=== PATIENT | male | born 1950 ===

== ENCOUNTER 2016-11-16 10:20 | Emergency (ER) | payer MEDICARE, OTHER ==
[2016-11-16 10:20] VITALS: BMI 28.5
[2016-11-16 10:33] VITALS: BP 128/74; PULSE 98; RESP 16; TEMP 98.3; O2SAT 94
--- NOTE | 2016-11-16 13:05 | ED PDOC ---
Arrival/HPI - General Chief Complaint: High Blood Pressure Time Seen by Provider: 11/16/16 10:35 Historian: Patient - History of Present Illness Narrative History of Present Illness (Text): 11/16/16 10:35 A 66 year old male, whose past medical history includes diabetes and hypertension reports to emergency department complaining of a high blood sugar level. Patient was at the nursing station at his residents and was found to have a blood glucose level of 300, so he came to the emergency room for further evaluation. Patient states that he is complying with his medications, but not with his diet. Patient denies any fever or other complaints at this time. PMD: Dr. Rojas Time/Duration: Prior to Arrival Symptom Onset: Sudden Symptom Course: Unchanged Quality: Other Activities at Onset: Rest Modifying Factors (Text): patient is noncompliant with diet Context: Home (correction) Associated Symptoms (Text): None Past Medical History - Provider Review Nursing Documentation Reviewed: Yes - Infectious Disease Hx of Infectious Diseases: None - Tetanus Immunization Tetanus Immunization: Unknown - Cardiac Hx Hypertension: Yes - Pulmonary Hx Respiratory Disorders: Yes Hx Asthma: Yes Hx Sleep Apnea: Yes - Neurological Hx Neurological Disorder: Yes Other/Comment: NEUROPATHY - HEENT Hx HEENT Disorder: Yes Hx Cataracts: Yes - Renal Hx Renal Disorder: No - Endocrine/Metabolic Hx Endocrine Disorders: Yes Hx Diabetes Mellitus Type 2: Yes - Hematological/Oncological Hx Blood Disorders: No - Integumentary Hx Dermatological Disorder: No - Musculoskeletal/Rheumatological Hx Falls: Yes - Gastrointestinal Hx Gastrointestinal Disorders: Yes Hx Gall Bladder Disease: Yes Hx Gastroesophageal Reflux: Yes Hx Hemorrhoids: Yes Other/Comment: hemorrhoids - Genitourinary/Gynecological Hx Genitourinary Disorders: Yes Hx Prostate Problems: Yes (BPH) - Psychiatric Hx Psychophysiologic Disorder: No Hx Anxiety: Yes Hx Depression: Yes Hx Emotional Abuse: No Hx Physical Abuse: No Hx Substance Use: No - Surgical History Hx Cholecystectomy: Yes Hx Orthopedic Surgery: Yes (LEFT FOOT) - Anesthesia Hx Anesthesia: Yes Hx Anesthesia Reactions: No Hx Malignant Hyperthermia: No - Suicidal Assessment Feels Threatened In Home Enviroment: No Family/Social History - Physician Review Nursing Documentation Reviewed: Yes Family/Social History: Unknown Family HX Smoking Status: Former Smoker Hx Alcohol Use: No Hx Substance Use: No Hx Substance Use Treatment: No Allergies/Home Meds Allergies/Adverse Reactions: Allergies ibuprofen [From Motrin] Allergy (Intermediate, Verified 11/16/16 10:24) ITCHING Home Medications: Home Meds Medication Instructions Recorded Confirmed Insulin Human NPH/Reg [HumuLIN 15 unit SC TID 04/04/13 11/16/16 70/30 (NPH/Reg)] Mometasone/Formoterol [Dulera 200 2 puff IH BID 04/08/14 11/16/16 Mcg/5 Mcg Inhaler] PARoxetine [Paxil CR] 20 mg PO HS 04/08/14 11/16/16 Ezetimibe/Simvastatin [Vytorin 1 tab PO HS 07/21/14 11/16/16 10-20 mg Tablet] Albuterol HFA [Ventolin HFA 90 2 puff IH [id number] PRN 10/05/15 11/16/16 mcg/actuation (8 g)] Benazepril HCl 40 mg PO DAILY 10/05/15 11/16/16 Insulin Glargine, Recombina 45 unit SQ HS 10/05/15 11/16/16 [Lantus] amLODIPine [Norvasc] 2.5 mg PO DAILY 10/05/15 11/16/16 metFORMIN [glucOPHAGE] 750 mg PO TID 11/16/16 11/16/16 Review of Systems - Physician Review All systems were reviewed & negative as marked: Yes - Review of Systems Constitutional: absent: Fevers Respiratory: absent: SOB Cardiovascular: absent: Chest Pain Endocrine: Other (high blood sugar) Physical Exam Vital Signs Reviewed: Yes Vital Signs Temp Pulse Pulse Resp BP Pulse Ox 11/16/16 10:43 98.3 F 98 H 16 128/74 94 L 11/16/16 10:34 98 H 11/16/16 10:27 98.3 F 98 H 16 128/74 94 L Temperature: Afebrile Blood Pressure: Normal Pulse: Regular Respiratory Rate: Normal Appearance: Positive for: Well-Appearing, Non-Toxic, Comfortable Pain Distress: None Mental Status: Positive for: Alert and Oriented X 3 Finger Stick Blood Glucose: 278 - Systems Exam Head: Present: Atraumatic, Normocephalic Pupils: Present: PERRL Extroacular Muscles: Present: EOMI Conjunctiva: Present: Normal Mouth: Present: Moist Mucous Membranes Neck: Present: Normal Range of Motion Respiratory/Chest: Present: Clear to Auscultation, Good Air Exchange. No: Respiratory Distress, Accessory Muscle Use Cardiovascular: Present: Regular Rate and Rhythm, Normal S1, S2. No: Murmurs Abdomen: Present: Normal Bowel Sounds. No: Tenderness, Distention, Peritoneal Signs Back: Present: Normal Inspection Upper Extremity: Present: Normal Inspection. No: Cyanosis, Edema Lower Extremity: Present: Normal Inspection. No: Edema Neurological: Present: GCS=15, CN II-XII Intact, Speech Normal Skin: Present: Warm, Dry, Normal Color. No: Rashes Psychiatric: Present: Alert, Oriented x 3, Normal Insight, Normal Concentration Medical Decision Making ED Course and Treatment: 11/16/16 10:35 Impression: A 66 year old male with high blood sugar. Patient blood sugar checked upon arrival and was found to be 276. Differential Diagnosis included but are not limited to: hyperglycemia Plan: -- EKG -- Reassess and disposition Prior Visits: Notes and results from previous visits were reviewed. The patient last seen in the emergency department on 08/07/15 for evaluation of left-sided facial droop. Progress Notes: EKG: Ordered, reviewed, and independently interpreted the EKG. Rate : 91 BPM Rhythm : NSR Interpretation : No ST-segment elevations or depressions, no T-wave inversions, normal intervals. 11/16/16 11:30 On reevaluation the patient is in no acute distress. I have discussed the results and plan with the patient, who expresses understanding. Patient given the opportunity to ask question, all questions were answered and there is agreement with the plan to discharge the patient home. Patient is stable for discharge. Patient was instructed to follow up with physician/clinic in 1-2 days or return if symptoms persist/worsen or new concerning symptoms arise. - Lab Interpretations Lab Results: Lab Results 11/16/16 10:41: POC Glucose (mg/dL) 278 H - Scribe Statement The provider has reviewed the documentation as recorded by the Scribe Chela Alexandra training with Shine Maddox. Provider Scribe Attestation: All medical record entries made by the Scribe were at my direction and personally dictated by me. I have reviewed the chart and agree that the record accurately reflects my personal performance of the history, physical exam, medical decision making, and the department course for this patient. I have also personally directed, reviewed, and agree with the discharge instructions and disposition. Disposition/Present on Arrival - Present on Arrival Any Indicators Present on Arrival: No History of DVT/PE: No History of Uncontrolled Diabetes: Yes Urinary Catheter: No History of Decub. Ulcer: No History Surgical Site Infection Following: None - Disposition Have Diagnosis and Disposition been Completed?: Yes Diagnosis: Diabetes mellitus Disposition: HOME/ ROUTINE Disposition Time: 11:10 Condition: GOOD Discharge Instructions (ExitCare): Diabetes Mellitus Type 2 in Adults (ED) Additional Instructions: Thank you for letting us take care of you today. Your provider was Dr. Logan. You were treated for hyperglycemia. The emergency medical care you received today was directed at your acute symptoms. If you were prescribed any medication, please fill it and take as directed. It may take several days for your symptoms to resolve. Return to the Emergency Department if your symptoms worsen, do not improve, or if you have any other problems. Please contact your doctor or call one of the physicians/clinics you have been referred to that are listed on the Patient Visit Information form that is included in your discharge packet. Bring any paperwork you were given at discharge with you along with any medications you are taking to your follow up visit. Our treatment cannot replace ongoing medical care by a primary care provider (PCP) outside of the emergency department. Thank you for allowing the [facility] team to be part of your care today. Follow up with your doctor in 3-4 days for re-evaluation. Referrals: Chrissy Rojas MD [Primary Care Provider] - Follow up with primary
--- NOTE | 2016-11-16 18:34 | CARD ---
APPROVED REPORT EKG Measurement Heart [id number] <Conclusion> Normal sinus rhythm Normal ECG
== END 2016-11-16 11:30 | disposition home or self-care (01) ==
LOC: ED 10:20
DX: E11.9 Type 2 diabetes mellitus without complications (principal); I10 Essential (primary) hypertension; Z87.891 Personal history of nicotine dependence

== ENCOUNTER 2016-12-17 07:02 | Emergency (ER) | payer MEDICARE, OTHER ==
[2016-12-17 07:38] VITALS: TEMP 98.9; BMI 28.8
[2016-12-17 10:02] LABS: PH,URINE 5.5 (4.7-8.0); URINE BILIRUBIN NEGATIVE (NEGATIVE); URINE BLOOD NEGATIVE (NEGATIVE); URINE GLUCOSE (UA) >=1000 mg/dL (NEGATIVE); URINE KETONE TRACE mg/dL (NEGATIVE); URINE LEUKOCYTE ESTERASE NEGATIVE Leu/uL (NEGATIVE); URINE PROTEIN NEGATIVE mg/dL (<30 mg/dL); URINE UROBILINOGEN 0.2 E.U./dL (<1 E.U./dL)
--- NOTE | 2016-12-17 10:06 | ED PDOC ---
Arrival/HPI - General Chief Complaint: Back Pain Time Seen by Provider: 12/17/16 08:29 Historian: Patient - History of Present Illness Narrative History of Present Illness (Text): 12/17/16 12:17 66-year-old male with chronic back pain controlled with Percocet presents emergency Department with urine discoloration. Patient states that his urine is more yellow than usual. Time/Duration: 1-3 hours Symptom Course: Unchanged Activities at Onset: Rest Context: Home Past Medical History - Provider Review Nursing Documentation Reviewed: Yes - Infectious Disease Hx of Infectious Diseases: None - Tetanus Immunization Tetanus Immunization: Unknown - Cardiac Hx Hypertension: Yes - Pulmonary Hx Respiratory Disorders: Yes Hx Asthma: Yes Hx Sleep Apnea: Yes - Neurological Hx Neurological Disorder: Yes Other/Comment: NEUROPATHY - HEENT Hx HEENT Disorder: Yes Hx Cataracts: Yes - Renal Hx Renal Disorder: No - Endocrine/Metabolic Hx Endocrine Disorders: Yes Hx Diabetes Mellitus Type 2: Yes - Hematological/Oncological Hx Blood Disorders: No - Integumentary Hx Dermatological Disorder: No - Musculoskeletal/Rheumatological Hx Falls: Yes - Gastrointestinal Hx Gastrointestinal Disorders: Yes Hx Gall Bladder Disease: Yes Hx Gastroesophageal Reflux: Yes Hx Hemorrhoids: Yes Other/Comment: hemorrhoids - Genitourinary/Gynecological Hx Genitourinary Disorders: Yes Hx Prostate Problems: Yes (BPH) - Psychiatric Hx Psychophysiologic Disorder: No Hx Anxiety: Yes Hx Depression: Yes Hx Emotional Abuse: No Hx Physical Abuse: No Hx Substance Use: No - Surgical History Hx Cholecystectomy: Yes Hx Orthopedic Surgery: Yes (LEFT FOOT) - Anesthesia Hx Anesthesia: Yes Hx Anesthesia Reactions: No Hx Malignant Hyperthermia: No - Suicidal Assessment Feels Threatened In Home Enviroment: No Family/Social History - Physician Review Nursing Documentation Reviewed: Yes Family/Social History: No Known Family HX Smoking Status: Former Smoker Hx Alcohol Use: No Hx Substance Use: No Hx Substance Use Treatment: No Allergies/Home Meds Allergies/Adverse Reactions: Allergies ibuprofen [From Motrin] Allergy (Intermediate, Verified 12/17/16 07:38) ITCHING Home Medications: Home Meds Medication Instructions Recorded Confirmed Insulin Human NPH/Reg [HumuLIN 15 unit SC TID 04/04/13 11/16/16 70/30 (NPH/Reg)] Mometasone/Formoterol [Dulera 200 2 puff IH BID 04/08/14 11/16/16 Mcg/5 Mcg Inhaler] PARoxetine [Paxil CR] 20 mg PO HS 04/08/14 11/16/16 Ezetimibe/Simvastatin [Vytorin 1 tab PO HS 07/21/14 11/16/16 10-20 mg Tablet] Albuterol HFA [Ventolin HFA 90 2 puff IH [id number] PRN 10/05/15 11/16/16 mcg/actuation (8 g)] Benazepril HCl 40 mg PO DAILY 10/05/15 11/16/16 Insulin Glargine, Recombina 45 unit SQ HS 10/05/15 11/16/16 [Lantus] amLODIPine [Norvasc] 2.5 mg PO DAILY 10/05/15 11/16/16 metFORMIN [glucOPHAGE] 750 mg PO TID 11/16/16 11/16/16 Review of Systems - Physician Review All systems were reviewed & negative as marked: Yes Physical Exam - Physical Exam Narrative Physical Exam (Text): 12/17/16 12:22 - Review of Systems Constitutional: Normal. absent: Fatigue, Weight Change, Fevers Eyes: Normal ENT: denies sore throat, denies tristhmus Respiratory: Normal. absent: SOB, Cough, Sputum Cardiovascular: absent: Chest Pain, Palpitations, Syncope Gastrointestinal: Normal. absent: Abdominal Pain, Diarrhea, Nausea, Vomiting Genitourinary: Urine discoloration absent: Dysuria, Frequency, Hematuria Musculoskeletal: Normal. absent: Arthralgias, Back Pain, Neck Pain Skin: no rashes, no erythema Neurological: absent: Focal Weakness Endocrine: Normal Hemo/Lymphatic: Normal Psychiatric: No suicidal or homicidal ideations Physical exam Patient appears age appropriate in no distress, speaking full sentences without difficulty Increased hypertonicity appreciated in the lumbar region, pain quality reproduced with palpation. No midline tenderness. FROM of pt's cervical, thoracic, lumbar, and sacral regions appreciated, active/passive without any difficulty. Lower extremities with full neurological and vascular intact. Steady gait. - Systems Exam Head: Present: Atraumatic, Normocephalic Pupils: Present: PERRL Extroacular Muscles: Present: EOMI Conjunctiva: Present: Normal Mouth: Present: Moist Mucous Membranes Neck: Present: Normal Range of Motion. No: MIDLINE TENDERNESS, Paraspinal Tenderness Respiratory/Chest: Present: Clear to Auscultation, Good Air Exchange. No: Respiratory Distress, Accessory Muscle Use, Tachypneic Cardiovascular: Present: Regular Rate and Rhythm, Normal S1, S2, Peripheal Pulses Present. No: Murmurs Abdomen: Present: Normal Bowel Sounds. No: Tenderness, Distention, Peritoneal Signs, Rebound, Guarding Back: Present: Normal Inspection. No: Midline Tenderness, Paraspinal Tenderness Upper Extremity: Present: Normal Inspection. No: Cyanosis, Edema Lower Extremity: Present: Normal Inspection. No: Edema Neurological: Present: GCS=15, Speech Normal, cranial nerves II through XII fully intact with no cerebellar abnormality, neurosensory fully intact. No focal neurological deficits. Skin: Present: Warm, Dry, Normal Color. No: Rashes Lymphatic: Present: OX3, NI, NC Psychiatric: Present: Alert, Oriented x 3, Normal Insight, Normal Concentration Vital Signs Reviewed: Yes Vital Signs Temp Pulse Resp BP Pulse Ox 12/17/16 11:43 79 18 176/85 H 100 12/17/16 09:02 88 16 191/101 H 100 12/17/16 07:37 98.9 F 91 H 16 133/83 96 Temperature: Afebrile Blood Pressure: Normal Pulse: Regular Respiratory Rate: Normal Appearance: Positive for: Well-Appearing, Non-Toxic, Comfortable Pain Distress: None Mental Status: Positive for: Alert and Oriented X 3 Medical Decision Making ED Course and Treatment: 12/17/16 10:05 Impression: 66-year-old male with chronic back pain controlled with Percocet presents emergency Department with urine discoloration. Patient states that his urine is more yellow than usual. No acute findings on physical examination. Differential Diagnosis include but are not limited to: UTI vs renal colic Plan: -- CT abd/pelvis w/o PO or IV -- Urinalysis -- Labs -- Reassess and disposition Prior Visits: Notes and results from previous visits were reviewed. Patient last seen in the Emergency department on 11/19/16 for evaluation of high blood sugar level. Patient was stable for discharge. Patient was advised to follow up with physician. Progress Notes: CT abd/pelvis: Creator : Eran Tillman MD IMPRESSION: No acute intra-abdominal findings 12/17/16 12:15 Patient in no distress, denies any pain at this time, states that he feels comfortable being discharged home with outpatient follow-up. Pt states he understands to return to the ER right away for new or worsening symptoms or for inability to f/u with PMD or specialist as instructed. Patient states that he fully agrees with and understands discharge instructions. States that he agrees with the plan and disposition. Verbalized and repeated discharge instructions and plan. I have given the patient opportunity to ask any additional questions. 12/17/16 12:23 - Lab Interpretations Lab Results: 12/17/16 10:00 12/17/16 10:00 Lab Results 12/17/16 10:00: WBC 8.6, RBC 4.65, Hgb 14.4, Hct 41.0 L, MCV 88.2, MCH 31.0, MCHC 35.1, RDW 13.1, Plt Count 229, MPV 9.3, Gran % 65.6, Lymph % (Auto) 24.4, [place] % (Auto) 8.4 H, Eos % (Auto) 1.0 L, Baso % (Auto) 0.6, Gran # 5.63, Lymph # 2.1, [place] # 0.7 H, Eos # 0.1, Baso # 0.05, PT 10.8, INR 1.00, APTT 27.1, Sodium 139, Potassium 4.5, Chloride 102, Carbon Dioxide 26, Anion Gap 16, BUN 21 , Creatinine 0.8, Est GFR ( Amer) > 60, Est GFR (Non-Af Amer) > 60, Random Glucose 234 H, Calcium 9.2, Total Bilirubin 0.5, AST 21, ALT 28, Alkaline Phosphatase 64, Total Protein 6.8, Albumin 3.9, Globulin 2.9, Albumin/ Globulin Ratio 1.4 12/17/16 09:10: Urine Color Yellow, Urine Appearance Clear, Urine pH 5.5, Ur Specific [place] >= 1.030, Urine Protein Negative, Urine Glucose (UA) >=1000, Urine Ketones Trace H, Urine Blood Negative, Urine Nitrate Negative, Urine Bilirubin Negative, Urine Urobilinogen 0.2, Ur Leukocyte Esterase Negative I have reviewed the lab results: Yes - RAD Interpretation Radiology Orders: 12/17/16 08:29 ABD & PELVIS W/O PO OR IV CONT [CT] Stat - Scribe Statement The provider has reviewed the documentation as recorded by the Gurdeepibjenelle Jose All medical record entries made by the Scribe were at my direction and personally dictated by me. I have reviewed the chart and agree that the record accurately reflects my personal performance of the history, physical exam, medical decision making, and the department course for this patient. I have also personally directed, reviewed, and agree with the discharge instructions and disposition. Disposition/Present on Arrival - Present on Arrival Any Indicators Present on Arrival: No History of DVT/PE: No History of Uncontrolled Diabetes: Yes Urinary Catheter: No History of Decub. Ulcer: No History Surgical Site Infection Following: None - Disposition Have Diagnosis and Disposition been Completed?: Yes Diagnosis: Back pain Disposition: HOME/ ROUTINE Disposition Time: 12:23 Patient Plan: Discharge Condition: GOOD Discharge Instructions (ExitCare): Back Pain (ED) Additional Instructions: PLEASE RETURN TO THE EMERGENCY DEPARTMENT FOR NEW OR WORSENING SYMPTOMS. RETURN RIGHT AWAY IF YOU CANNOT FOLLOW UP WITH YOUR PRIMARY CARE DOCTOR, CLINIC, OR SPECIALIST IN 1-2 DAYS. Referrals: Chrissy Rojas MD [Primary Care Provider] - Follow up with primary Edson Antonio MD [Staff Provider] - Follow up with primary
[2016-12-17 10:13] LABS: ADD MANUAL DIFF? NO
[2016-12-17 10:16] LABS: URINE APPEARANCE CLEAR (CLEAR); URINE COLOR YELLOW (YELLOW)
[2016-12-17 10:17] LABS: BASO # 0.05 K/mm3 (0.0-2.0); BASO % 0.6 % (0.0-3.0); EOS # 0.1 (0.0-0.7); GRAN # 5.63 (1.4-6.5); GRAN % 65.6 % (50.0-68.0); LYMPH # 2.1 (1.2-3.4); LYMPH % 24.4 % (22.0-35.0); MEAN CELL VOLUME 88.2 fL (80.0-105.0); MEAN CORPUSCULAR HGB CONC 35.1 g/dl (31.0-37.0); MEAN PLATELET VOLUME 9.3 fl (7.0-11.0); MONO # 0.7 (0.1-0.6); MONO % 8.4 % (1.0-6.0); PLATELET COUNT 229 10^3/uL (120.0-450.0); RED CELL DISTRIBUTION WIDTH 13.1 % (11.5-14.5); WHITE BLOOD COUNT 8.6 10^3/ul (4.5-11.0)
[2016-12-17 10:28] VITALS: O2SAT 100
[2016-12-17 10:28] LABS: PARTIAL THROMBOPLASTIN TIME 27.1 Seconds (23.7-30.8)
--- NOTE | 2016-12-17 10:59 | CT ---
PROCEDURE: CT Abdomen and Pelvis without intravenous contrast HISTORY: Renal colic COMPARISON: None. TECHNIQUE: Without contrast.. Contrast Dose: Radiation dose: Total exam DLP = 848 mGy-cm. This CT exam was performed using one or more of the following dose reduction techniques: Automated exposure control, adjustment of the mA and/or kV according to patient size, and/or use of iterative reconstruction technique. FINDINGS: LOWER THORAX: Unremarkable. LIVER: Unremarkable. No gross lesion or ductal dilatation. GALLBLADDER AND BILE DUCTS: Gallbladder removed PANCREAS: Unremarkable. No gross lesion or ductal dilatation. SPLEEN: Unremarkable. ADRENALS: Unremarkable. No mass. KIDNEYS AND URETERS: Unremarkable. No hydronephrosis. No solid mass. VASCULATURE: Unremarkable. No aortic aneurysm. BOWEL: Unremarkable. No obstruction. No gross mural thickening. There is mild diverticulosis of the descending and sigmoid colon without evidence of diverticulitis APPENDIX: Unremarkable. Normal appendix. PERITONEUM: Unremarkable. No free fluid. No free air. LYMPH NODES: Unremarkable. No enlarged lymph nodes. BLADDER: Unremarkable. REPRODUCTIVE: Unremarkable. BONES: No acute fracture. OTHER FINDINGS: None. IMPRESSION: No acute intra-abdominal findings
[2016-12-17 11:14] LABS: ALB/GLOB RATIO 1.4 (1.1-1.8); ALKALINE PHOSPHATASE 64 U/L (38-133); ALT/SGPT 28 U/L (7-56); AST/SGOT 21 U/L (15-59); BILIRUBIN,TOTAL 0.5 mg/dL (0.2-1.3); BLOOD UREA NITROGEN 21 mg/dL (7-21); CALCIUM 9.2 mg/dL (8.4-10.5); CARBON DIOXIDE 26 mmol/L (21-33); CHLORIDE 102 mmol/L (95-110); GFR AFRICAN-AMERICAN > 60; GLUCOSE,RANDOM 234 mg/dL (70-110); POTASSIUM 4.5 mmol/L (3.6-5.0); SODIUM 139 mmol/L (132-148); TOTAL PROTEIN 6.8 g/dL (5.8-8.3)
[2016-12-17 11:43] VITALS: BP 176/85; PULSE 79; RESP 18
== END 2016-12-17 12:30 | disposition home or self-care (01) ==
LOC: ED 07:02
DX: M54.9 Dorsalgia, unspecified (principal); I10 Essential (primary) hypertension; E11.9 Type 2 diabetes mellitus without complications; K21.9 Gastro-esophageal reflux disease without esophagitis; Z87.891 Personal history of nicotine dependence

== ENCOUNTER 2017-02-20 06:18 | Day surgery (SDC) | payer MEDICARE, OTHER ==
[2017-02-12 11:59] VITALS: BMI 29.2
[2017-02-20] MEDS ORDERED: cefTRIAXone (Rocephin) 1 gm Inj ONE (07:39)
[2017-02-20] MEDS ORDERED: Gentamicin 80 mg/2mL Inj. ONE (07:39)
[2017-02-20] MEDS ORDERED: Oxycodone/Acetaminophen 5/325 mg Tab PO PRN (08:31)
[2017-02-20] MEDS ORDERED: Propofol 10 mg/ml Inj (20 ML) ONE (08:35)
[2017-02-20] MEDS ORDERED: Midazolam 2 MG/2 ML VIAL ONE (08:35)
[2017-02-20] MEDS ORDERED: Sodium Chloride 0.9% 1,000 ML IV SCH (09:15)
[2017-02-20 09:56] VITALS: PULSE 70
[2017-02-20 10:45] VITALS: BP 133/95; RESP 20; TEMP 97.7; O2SAT 97
[2017-02-20] MEDS ORDERED: Oxycodone/Acetaminophen 5/325 mg Tab ONE (11:04)
[2017-02-20] MEDS ORDERED: Oxycodone/Acetaminophen 5/325 mg Tab PO ONE (11:06)
--- NOTE | 2017-03-22 09:55 | HP ---
DATE: 03/22/2017 UROLOGY ADMISSION HISTORY AND PHYSICAL REASON FOR ADMISSION: Workup of elevated PSA. HISTORY OF PRESENT ILLNESS: Mr. Shin is a very pleasant gentleman, who presents with an elevated PSA, voiding dysfunction, decrease nocturia, mild obstructive and irritative complaints and he is now here today for a prostate ultrasound and biopsy. PAST MEDICAL AND SURGICAL HISTORY: As listed in the chart and has a history of an NC and CVA. REVIEW OF SYSTEMS: Listed above. Noncontributory. No weight loss, chest pain, or shortness of breath, otherwise. MEDICATIONS: See chart. ALLERGIES: NONE. PHYSICAL EXAMINATION: GENERAL: Well-nourished male, in no apparent distress. VITAL SIGNS: Within normal limits as listed in the chart. LUNGS: Clear. HEART: Normal S1 and S2. ABDOMEN: Relatively soft, nontender. . No testicular masses. RECTAL: A 30 g prostate, felt to be smooth. DIAGNOSIS: Elevated PSA, voiding dysfunction, mild irritative and obstructive complaints. PLAN: At this time, also we will provide the patient with the antibiotic prophylaxis and we will plan for an ultrasound of the prostate and ultrasound-guided prostate biopsy. We discussed the patient's risks, benefits, and treatment plans. Discussed observation, discussed repeat imaging, discussed repeat blood testing. Also discussed all other options and the risks, benefits, and treatment alternatives with him. The patient is here today for an ultrasound of the prostate, ultrasound-guided prostate biopsy. Further plan will follow. Juan King MD
--- NOTE | 2017-03-22 15:36 | OP ---
PROCEDURE DATE: 02/20/2017 PREOPERATIVE DIAGNOSES: Elevated prostate-specific antigen, voiding dysfunction, decreased void stream, nocturia. POSTOPERATIVE DIAGNOSES: Elevated prostate-specific antigen, voiding dysfunction, decreased void stream, nocturia. PROCEDURE: Transrectal ultrasound and ultrasound-guided biopsy. SURGEON: Juan King MD ESTIMATED BLOOD LOSS: Less than 10 mL COMPLICATIONS: There were no complications. SPECIMEN: Prostate cords. INDICATIONS: See history and physical for further details. This is a very pleasant gentleman here for the above procedure. DESCRIPTION OF PROCEDURE: After discussing the options with the patient the risks, benefits and alternatives, the patient was brought to the OR and placed on the table. Routine monitor was placed. Time-out was called to confirm the patient's positioning. We now inserted the probe via the rectum and we took pictures. The transverse and longitudinal view of the prostate gland is measured to be about 30 cc. Now, there were no specific hypoechoic lesions. We now began our random biopsies. We did a total of 12 cords and resected in regions of left base, left mid, left apex, right base, right mid, and right apex. A total of 2 cords, lateral mid and lateral mid of each area. A total of 12 cords were sent out. Both biopsy and rectal exam was within normal limits. The patient tolerated it without any complications. Juan King MD
== END 2017-02-20 11:30 | disposition home or self-care (01) ==
LOC: SDS 06:18
PROVIDERS: ATTEND Urology
DX: N40.0 Benign prostatic hyperplasia without lower urinary tract symptoms (principal); I10 Essential (primary) hypertension; R97.20 Elevated prostate specific antigen [PSA]; I25.2 Old myocardial infarction; Z86.73 Personal history of transient ischemic attack (TIA), and cerebral infarction without residual deficits
CPT/HCPCS: 55899; 82948; 88305; J0696; J1580; J2250; J2405; J2704; J3010; J7040; J7120

== ENCOUNTER 2017-03-13 07:16 | Day surgery (SDC) | payer MEDICARE, OTHER ==
[2017-02-12 11:59] VITALS: BMI 29.2
[2017-03-13] MEDS ORDERED: Iohexol 240 (50 ml) ONE (09:01)
[2017-03-13] MEDS ORDERED: cefTRIAXone (Rocephin) 1 gm Inj ONE (09:01)
[2017-03-13] MEDS ORDERED: Lidocaine 2% Inj (20ml) ONE (09:03)
[2017-03-13] MEDS ORDERED: Propofol 10 mg/ml Inj (20 ML) ONE (09:03)
[2017-03-13] MEDS ORDERED: Lidocaine 2% Jelly (Uro-Jet) ONE (09:22)
[2017-03-13] MEDS ORDERED: Lactated Ringer's 1,000 ML IV SCH (09:33)
[2017-03-13 09:52] VITALS: TEMP 98.1; O2SAT 97
[2017-03-13 10:37] VITALS: PULSE 72; RESP 18
[2017-03-13 12:09] VITALS: BP 134/82
== END 2017-03-13 11:25 | disposition home or self-care (01) ==
LOC: SDS 07:16
PROVIDERS: ATTEND Urology
DX: R31.9 Hematuria, unspecified (principal); R30.0 Dysuria
CPT/HCPCS: 52005; 74430; 82948; J0696; J2704; J3010; J7120 ×2; Q9966

== ENCOUNTER 2018-07-27 05:10 | Emergency (ER) | payer MEDICARE, OTHER ==
[2018-07-27 05:10] VITALS: BMI 27.0
[2018-07-27 05:30] VITALS: PULSE 88; RESP 18; TEMP 98.4
--- NOTE | 2018-07-27 06:28 | ED PDOC ---
Arrival/HPI - General Chief Complaint: Abnormal Skin Integrity Time Seen by Provider: 07/27/18 05:34 Historian: Patient - History of Present Illness Narrative History of Present Illness (Text): 07/27/18 06:10 Patient to ED past medical hx. of DM with complaint of left buttock abscess.Patient states he has had this in the past.Present symptom has been developing for a while according to the patient.States area previously ruptured recently with some discharge expressed.He denies any fever. Past Medical History - Provider Review Nursing Documentation Reviewed: Yes - Travel History Have you recently traveled outside [place] w/in the past 3 mons?: No - Infectious Disease Hx of Infectious Diseases: None - Tetanus Immunization Tetanus Immunization: Unknown - Cardiac Hx Cardiac Disorders: Yes Hx Hypertension: Yes Hx Pacemaker: No - Pulmonary Hx Respiratory Disorders: Yes (SMOKED CIGARETTES QUIT) Hx Asthma: Yes Hx Chronic Obstructive Pulmonary Disease (COPD): Yes Hx Sleep Apnea: Yes - Neurological Hx Neurological Disorder: Yes Hx Dizziness: Yes Other/Comment: NEUROPATHY - HEENT Hx HEENT Disorder: Yes Hx Cataracts: Yes - Renal Hx Renal Disorder: No - Endocrine/Metabolic Hx Endocrine Disorders: Yes Hx Diabetes Mellitus Type 2: Yes - Hematological/Oncological Hx Blood Disorders: No - Integumentary Hx Dermatological Disorder: No - Musculoskeletal/Rheumatological Hx Musculoskeletal Disorders: Yes (HERNIATED DISC,LUMBAR RADICULOPATHY) Hx Falls: Yes Other/Comment: TRIGGER FINGER - Gastrointestinal Hx Gastrointestinal Disorders: Yes Hx Gall Bladder Disease: Yes Hx Gastroesophageal Reflux: Yes Other/Comment: hemorrhoids - Genitourinary/Gynecological Hx Genitourinary Disorders: Yes Hx Prostate Problems: Yes (BPH) - Psychiatric Hx Emotional Abuse: No Hx Physical Abuse: No Hx Substance Use: No - Surgical History Hx Cholecystectomy: Yes - Anesthesia Hx Anesthesia Reactions: No Hx Malignant Hyperthermia: No - Suicidal Assessment Feels Threatened In Home Enviroment: No Family/Social History - Physician Review Nursing Documentation Reviewed: Yes Family/Social History: Diabetes Smoking Status: Former Smoker Hx Alcohol Use: No Hx Substance Use: No Hx Substance Use Treatment: No Allergies/Home Meds Allergies/Adverse Reactions: Allergies ibuprofen [From Motrin] Allergy (Intermediate, Verified 09/05/17 20:22) ITCHING Home Medications: Home Meds Medication Instructions Recorded Confirmed RX: Insulin Human NPH/Reg [HumuLIN 10 unit SC TID 04/04/13 09/04/17 70/30 (NPH/Reg)] RX: Mometasone/Formoterol [Dulera 2 puff IH BID 04/08/14 09/04/17 200 Mcg/5 Mcg Inhaler] RX: Ezetimibe/Simvastatin [Vytorin 1 tab PO HS 07/21/14 09/04/17 10-20 mg Tablet] RX: Albuterol HFA [Ventolin HFA 90 2 puff IH [id number] PRN 10/05/15 09/04/17 mcg/actuation (8 g)] RX: Benazepril HCl 40 mg PO DAILY 10/05/15 09/04/17 RX: Alprazolam [Xanax Xr] 1 mg PO HS 09/02/17 09/04/17 RX: Empagliflozin [Jardiance] 25 mg PO DAILY 09/02/17 09/04/17 RX: Escitalopram [Lexapro] 5 mg PO DAILY 09/02/17 09/04/17 RX: Gabapentin [Neurontin] 800 mg PO BID 09/02/17 09/04/17 RX: Gemfibrozil [Lopid] 600 mg PO DAILY 09/02/17 09/04/17 RX: Insulin Degludec [Tresiba 15 units SQ HS 09/02/17 09/04/17 Flextouch U-100] RX: Linagliptin/Metformin HCl 1 tab PO DAILY 09/02/17 09/04/17 [Jentadueto 2.5 mg-1000 mg Tab] RX: Sucralfate [Carafate Tab] 1 tab PO DAILY 09/02/17 09/04/17 RX: Zolpidem [Ambien] 12.5 mg PO HS 09/02/17 09/04/17 RX: Oxycodone HCl/Acetaminophen 1 each PO Q6 PRN 09/05/17 09/05/17 [Percocet 10-325 mg Tablet] Review of Systems - Review of Systems Constitutional: Normal Eyes: Normal ENT: Normal Respiratory: Normal Cardiovascular: Normal Gastrointestinal: Normal Genitourinary Male: Normal Musculoskeletal: Normal Skin: Abscess Neurological: Normal Endocrine: Normal Hemo/Lymphatic: Normal Psychiatric: Normal Physical Exam Vital Signs Temp Pulse Resp BP Pulse Ox 07/27/18 05:29 98.4 F 88 18 145/94 H 96 Temperature: Afebrile Blood Pressure: Normal Pulse: Regular Respiratory Rate: Normal Appearance: Positive for: Well-Appearing, Non-Toxic, Comfortable Pain Distress: None Mental Status: Positive for: Alert and Oriented X 3 - Systems Exam Head: Present: Atraumatic, Normocephalic Pupils: Present: PERRL Respiratory/Chest: Present: Clear to Auscultation Cardiovascular: Present: Regular Rate and Rhythm Neurological: Present: GCS=15, CN II-XII Intact, Speech Normal, Motor Func Grossly Intact, Normal Sensory Function Skin: Present: Abscess (left gluteal ~2-3 cm firm slightly fluctuant mass/minimal tenderness/erythema/small punctate open cental area/no streaking) Psychiatric: Present: Alert, Oriented x 3, Normal Insight, Normal Concentration Medical Decision Making - Medication Orders Current Medication Orders: Discontinued Medications Cephalexin Monohydrate (Keflex) 500 mg PO ONCE STA; Protocol Stop: 07/27/18 06:15 Procedures - Incision and Drainage Site: left gluteal Blade Size: 11 I & D Procedure: betadine prep, sterile drapes applied, sterile dressing applied, gauze wick placed Progress: Area prepped sterily/1% Lidocaine locally/I and D with ~2 -3 cc pus expressed/iodoform medicated wick was placed/steril dressing placed Disposition/Present on Arrival - Present on Arrival Any Indicators Present on Arrival: No History of DVT/PE: No History of Uncontrolled Diabetes: Yes Urinary Catheter: No History of Decub. Ulcer: No History Surgical Site Infection Following: None - Disposition Have Diagnosis and Disposition been Completed?: Yes Diagnosis: Skin abscess, Status post incision and drainage Disposition: HOME/ ROUTINE Disposition Time: 06:28 Patient Plan: Discharge Condition: GOOD Discharge Instructions (ExitCare): Boil (DC), Abscess Incision and Drainage (DC) Additional Instructions: take medication as prescribed/keep area clean and dry/follow up with surgeon in 2 days for packing removal and re evaluation/if you are unable to do so then return to the emergency room Prescriptions: Cephalexin [cephalexin] 500 mg PO TID #21 cap Referrals: Chrissy Rojas MD [Primary Care Provider] - Follow up with primary Severino Chandra MD [Staff Provider] - Follow up with primary Forms: [employer] (Sinhala)
[2018-07-27] MEDS ORDERED: Oxycodone/Acetaminophen 5/325 mg Tab PO STA (06:38)
[2018-07-27 07:03] VITALS: BP 140/77; O2SAT 99
== END 2018-07-27 07:04 | disposition home or self-care (01) ==
LOC: ED 05:10
DX: L02.31 Cutaneous abscess of buttock (principal); E11.9 Type 2 diabetes mellitus without complications; I10 Essential (primary) hypertension; J44.9 Chronic obstructive pulmonary disease, unspecified; N40.0 Benign prostatic hyperplasia without lower urinary tract symptoms; Z83.3 Family history of diabetes mellitus; Z87.891 Personal history of nicotine dependence

== ENCOUNTER 2018-07-28 10:00 | Emergency (ER) | payer MEDICARE, OTHER ==
[2018-07-28 10:30] VITALS: BP 145/98; PULSE 82; RESP 16; O2SAT 98
[2018-07-28 10:31] VITALS: BMI 30.4
--- NOTE | 2018-07-28 11:26 | ED PDOC ---
Arrival/HPI - General Chief Complaint: Wound Check Time Seen by Provider: 07/28/18 10:41 Historian: Patient - History of Present Illness Narrative History of Present Illness (Text): 07/28/18 11:29 68-year-old male presents today for wound check to abscess to the left buttocks. Patient states that he was seen in the emergency room yesterday in the morning and had incision and drainage of his left buttocks abscess. Patient presents today because he was unable to follow-up with the surgeon. Patient is complaining of pain but has not taken any medications for pain. He denies fevers or chills. No other complaints Past Medical History - Provider Review Nursing Documentation Reviewed: Yes - Travel History Have you recently traveled outside [place] w/in the past 3 mons?: No - Infectious Disease Hx of Infectious Diseases: None - Tetanus Immunization Tetanus Immunization: Unknown - Cardiac Hx Cardiac Disorders: Yes Hx Hypertension: Yes Hx Pacemaker: No - Pulmonary Hx Respiratory Disorders: Yes (SMOKED CIGARETTES QUIT) Hx Asthma: Yes Hx Chronic Obstructive Pulmonary Disease (COPD): Yes Hx Sleep Apnea: Yes - Neurological Hx Neurological Disorder: Yes Hx Dizziness: Yes Other/Comment: NEUROPATHY - HEENT Hx HEENT Disorder: Yes Hx Cataracts: Yes - Renal Hx Renal Disorder: No - Endocrine/Metabolic Hx Endocrine Disorders: Yes Hx Diabetes Mellitus Type 2: Yes - Hematological/Oncological Hx Blood Disorders: No - Integumentary Hx Dermatological Disorder: No - Musculoskeletal/Rheumatological Hx Musculoskeletal Disorders: Yes (HERNIATED DISC,LUMBAR RADICULOPATHY) Hx Falls: Yes Other/Comment: TRIGGER FINGER - Gastrointestinal Hx Gastrointestinal Disorders: Yes Hx Gall Bladder Disease: Yes Hx Gastroesophageal Reflux: Yes Other/Comment: hemorrhoids - Genitourinary/Gynecological Hx Genitourinary Disorders: Yes Hx Prostate Problems: Yes (BPH) - Psychiatric Hx Emotional Abuse: No Hx Physical Abuse: No Hx Substance Use: No - Surgical History Hx Cholecystectomy: Yes - Anesthesia Hx Anesthesia Reactions: No Hx Malignant Hyperthermia: No - Suicidal Assessment Feels Threatened In Home Enviroment: No Family/Social History - Physician Review Nursing Documentation Reviewed: Yes Family/Social History: Unknown Family HX Smoking Status: Former Smoker Hx Alcohol Use: No Hx Substance Use: No Hx Substance Use Treatment: No Allergies/Home Meds Allergies/Adverse Reactions: Allergies ibuprofen [From Motrin] Allergy (Intermediate, Verified 09/05/17 20:22) ITCHING Home Medications: Home Meds Medication Instructions Recorded Confirmed Insulin Human NPH/Reg [HumuLIN 10 unit SC TID 04/04/13 07/28/18 70/30 (NPH/Reg)] Mometasone/Formoterol [Dulera 200 2 puff IH BID 04/08/14 07/28/18 Mcg/5 Mcg Inhaler] Ezetimibe/Simvastatin [Vytorin 1 tab PO HS 07/21/14 07/28/18 10-20 mg Tablet] Albuterol HFA [Ventolin HFA 90 2 puff IH [id number] PRN 10/05/15 07/28/18 mcg/actuation (8 g)] Benazepril HCl 40 mg PO DAILY 10/05/15 07/28/18 Alprazolam [Xanax Xr] 1 mg PO HS 09/02/17 07/28/18 Empagliflozin [Jardiance] 25 mg PO DAILY 09/02/17 07/28/18 Escitalopram [Lexapro] 5 mg PO DAILY 09/02/17 07/28/18 Gabapentin [Neurontin] 800 mg PO BID 09/02/17 07/28/18 Gemfibrozil [Lopid] 600 mg PO DAILY 09/02/17 07/28/18 Insulin Degludec [Tresiba 15 units SQ HS 09/02/17 07/28/18 Flextouch U-100] Linagliptin/Metformin HCl 1 tab PO DAILY 09/02/17 07/28/18 [Jentadueto 2.5 mg-1000 mg Tab] Sucralfate [Carafate Tab] 1 tab PO DAILY 09/02/17 07/28/18 Zolpidem [Ambien] 12.5 mg PO HS 09/02/17 07/28/18 Oxycodone HCl/Acetaminophen 1 each PO Q6 PRN 09/05/17 07/28/18 [Percocet 10-325 mg Tablet] Review of Systems - Review of Systems Constitutional: absent: Fatigue, Fevers Respiratory: absent: SOB, Cough Cardiovascular: absent: Chest Pain, Palpitations Gastrointestinal: absent: Abdominal Pain, Constipation, Diarrhea, Nausea, Vomiting Genitourinary Male: absent: Dysuria, Frequency Musculoskeletal: Arthralgias Skin: Abscess Neurological: absent: Headache Psychiatric: absent: Anxiety, Depression Physical Exam Vital Signs Reviewed: Yes Vital Signs Temp Pulse Resp BP Pulse Ox 07/28/18 10:31 98.1 F 82 16 145/98 H 98 07/28/18 10:01 98.1 F 82 16 145/98 H 98 Temperature: Afebrile Blood Pressure: Hypertensive Pulse: Regular Respiratory Rate: Normal Appearance: Positive for: Well-Appearing, Non-Toxic, Comfortable Pain Distress: None Mental Status: Positive for: Alert and Oriented X 3 - Systems Exam Head: Present: Atraumatic Mouth: Present: Moist Mucous Membranes Neck: Present: Normal Range of Motion Respiratory/Chest: Present: Clear to Auscultation Cardiovascular: Present: Regular Rate and Rhythm Back: Present: Normal Inspection Upper Extremity: Present: Normal ROM Lower Extremity: Present: Normal ROM Neurological: Present: GCS=15, Speech Normal, Gait Normal Skin: Present: Warm, Dry, Normal Color, Abscess (left buttock; there is a 2cm round mildly erythematous abscess with central incision with packing in place. + surrounding induration. minimal tenderness. no warmth. ) Psychiatric: Present: Alert, Oriented x 3 Medical Decision Making ED Course and Treatment: 07/28/18 11:36 Patient is nontoxic well-appearing in no distress. Vital signs are stable. packing removed; no purulent discharge noted; packing was only in place for 1 day. packing changed. 1/4in sterile packing placed. dressing applied. Patient was advised to use warm compresses warm soaks return to the emergency room in 2 days for packing removal. return immediately if symptoms worsen persist or if new symptoms develop. pt was advised to continue keflex and add bactrim. pt was advised f/u with surgeon within the next 2 days. Patient verbalizes understanding of discharge instructions and need for immediate followup. all aspects of this case were discussed the attending of record. Impression: Abscess, buttock. wound check tylenol every 4 hours as needed for pain continue keflex as prescribed Bactrim DS: One tablet twice daily x7 days Warm compresses frequently Return in 2 days for packing removal and wound check Follow up with the surgeon within the next 2 days. Return immediately if symptoms worsen persist or if new symptoms develop: High fevers, increasing pain, increasing redness, swelling or if any other concerning symptoms develop. 07/28/18 11:38 Disposition/Present on Arrival - Present on Arrival Any Indicators Present on Arrival: Yes History of DVT/PE: No History of Uncontrolled Diabetes: Yes Urinary Catheter: No History of Decub. Ulcer: No History Surgical Site Infection Following: None - Disposition Have Diagnosis and Disposition been Completed?: Yes Diagnosis: Abscess of buttock, Encounter for wound re-check Disposition: HOME/ ROUTINE Disposition Time: 11:10 Patient Plan: Discharge Condition: GOOD Discharge Instructions (ExitCare): Boil (DC) Additional Instructions: tylenol every 4 hours as needed for pain continue keflex as prescribed Bactrim DS: One tablet twice daily x7 days Warm compresses frequently Return in 2 days for packing removal and wound check Follow up with the surgeon within the next 2 days. Return immediately if symptoms worsen persist or if new symptoms develop: High fevers, increasing pain, increasing redness, swelling or if any other concerning symptoms develop. Prescriptions: Sulfamethoxazole/Trimethoprim [Bactrim DS 800 mg-160 mg] 1 tab PO BID #14 tab Referrals: Mario Amor MD [Medical Doctor] - Follow up with primary Severino Chandra MD [Staff Provider] - Follow up with primary Cece Justin MD [Medical Doctor] - Follow up with primary [employer] [Outside] - Follow up with primary Forms: [employer] (Swedish)
[2018-07-28 11:45] VITALS: TEMP 98
== END 2018-07-28 11:42 | disposition home or self-care (01) ==
LOC: ED 10:00
DX: L02.31 Cutaneous abscess of buttock (principal); Z48.00 Encounter for change or removal of nonsurgical wound dressing; I10 Essential (primary) hypertension; E11.9 Type 2 diabetes mellitus without complications; Z87.891 Personal history of nicotine dependence

== ENCOUNTER 2018-09-05 10:43 | Outpatient (CLI) | payer MEDICARE, OTHER | END 2018-09-05 10:44 | disposition home or self-care (01) | LOC: RAD 10:43 ==

== ENCOUNTER 2018-11-04 10:09 | Outpatient (CLI) | payer MEDICARE, OTHER | END 2018-11-04 10:10 | disposition home or self-care (01) | LOC: RAD 10:09 ==